=== PATIENT | female | born 1975 | race Caucasian/White ===

== ENCOUNTER 2016-06-03 09:13 | Emergency (ER) | payer OTHER ==
--- NOTE | 2016-06-03 10:03 | RAD ---
FOUR VIEWS OF THE LEFT WRIST: Date: 06-03-16 History: Injury to left wrist after being knocked down by a pig one day ago. FINDINGS: No obvious fracture is seen and there is no evidence of a dislocation. No other osseous abnormality. There does appear to be mild subcutaneous soft tissue swelling lateral to the wrist. IMPRESSION: No acute fracture visualized involving the left wrist. If there is clinical concern for fracture of the navicular bone, follow up views of the wrist can be performed in 4-7 days to exclude a radiograp hically occult fracture after conservative management. POS: C[facility]
--- NOTE | 2016-06-03 10:03 | RAD ---
LEFT HAND THREE VIEWS: History: 40-year-old female with left hand pain following an injury yesterday. IMPRESSION: No fracture, dislocation, or other significant acute osseous abnormality. POS: CODY
== END 2016-06-03 10:07 | disposition home or self-care (01) ==
LOC: MADERS 09:13
DX: S63.502A Unspecified sprain of left wrist, initial encounter (principal); E03.9 Hypothyroidism, unspecified; E66.9 Obesity, unspecified; Z79.899 Other long term (current) drug therapy; W55.42XA Struck by pig, initial encounter